=== PATIENT | male | born 1995 | race Caucasian/White ===

== ENCOUNTER 2018-05-12 16:44 | Emergency (ER) | payer BC ==
[2018-05-12 17:52] VITALS: BP 152/73
--- NOTE | 2018-05-12 18:00 | UC ---
UC General HPI - HPI Summary HPI Summary: mild head congestion 3 days ago then much worse the next day with headache, body aches, f/c's, cough and congestion plus just not feeling well. no hx asthma. describes throat as scratchy. txing with nsaids. - History of Current Complaint Chief Complaint: UCGeneralIllness Stated Complaint: CONGESTION,HUGGINS,ST,ACHY,SNEEZY Time Seen by Provider: 05/12/18 17:53 Hx Obtained From: Patient Timing: Constant Pain Intensity: 0 Associated Signs & Symptoms: Negative: Chest Pain, SOB - Allergy/Home Medications Allergies/Adverse Reactions: Allergies Allergy/AdvReac Type Severity Reaction Status Date / Time Penicillins Allergy Hives Verified 05/12/18 17:49 Home Medications: Home Medications Dm/Pseudoephed/Acetaminophen [Day-Time Cold-Flu Softgel] 1 each PO DAILY [History Confirmed 05/12/18] Ibuprofen 600 mg PO Q12H 05/12/18 [History Confirmed 05/12/18] PMH/Surg Hx/FS Hx/Imm Hx Previously Healthy: Yes - Surgical History Surgical History: None - Family History Known Family History: Positive: Non-Contributory - Social History Occupation: Student Alcohol Use: Weekly Substance Use Type: None Smoking Status (MU): Never Smoked Tobacco - Immunization History Vaccination Up to Date: Yes Review of Systems All Other Systems Reviewed And Are Negative: Yes Constitutional: Positive: Fever, Chills, Fatigue Skin: Positive: Negative Eyes: Positive: Negative ENT: Positive: Sore Throat - "scratchy", Sinus Congestion Respiratory: Positive: Cough Cardiovascular: Positive: Negative Gastrointestinal: Positive: Negative Genitourinary: Positive: Negative Motor: Positive: Negative Neurovascular: Positive: Negative Musculoskeletal: Positive: Myalgia Neurological: Positive: Headache Psychological: Positive: Negative Physical Exam Triage Information Reviewed: Yes Appearance: Well-Appearing Vital Signs: Initial Vital Signs Temp 98.5 F 05/12/18 17:47 Pulse 80 05/12/18 17:47 Resp 16 05/12/18 17:47 BP 152/73 05/12/18 17:47 Pulse Ox 99 05/12/18 17:47 Vital Signs Reviewed: Yes Eyes: Positive: Conjunctiva Clear ENT: Positive: Pharynx normal, TMs normal. Negative: Nasal drainage, Sinus tenderness Neck: Positive: Supple, Nontender, No Lymphadenopathy Respiratory: Positive: Lungs clear, Normal breath sounds, No respiratory distress Cardiovascular: Positive: RRR, No Murmur Abdomen Description: Positive: Nontender, No Organomegaly, Soft Bowel Sounds: Positive: Present Musculoskeletal: Positive: ROM Intact Neurological: Positive: Alert Psychological: Positive: Age Appropriate Behavior Skin Exam: Normal Diagnostics - Laboratory Diagnostic Studies Completed/Ordered: rapid flu=influenza A+ Course/Dx - Course Course Of Treatment: beynd window for Tamiflu tx plus low risk thus no Tamiflu prescribed. - Differential Dx - Multi-Symptom Differential Diagnoses: Other - viral syndrom/influenza, pneumonia, pharyngitis. - Diagnoses Provider Diagnosis: Influenza A Discharge - Sign-Out/Discharge Documenting (check all that apply): Patient Departure All imaging exams completed and their final reports reviewed: No Studies - Discharge Plan Condition: Stable Disposition: HOME Patient Education Materials: Influenza (ED) Forms: *Gen. Provider Communication Referrals: ADINA STEPHENS [, APPLICATION, OTHER] - Additional Instructions: FOLLOW UP IF NOT BETTER IN 5 DAYS OR SOONER FOR ANY WORSENING. - Billing Disposition and Condition Condition: STABLE Disposition: Home
[2018-05-12 18:06] LABS: Influenza A Molecular POSITIVE (Negative)
== END 2018-05-12 18:29 | disposition home or self-care (01) ==
LOC: UCCORT 16:44
DX: J10.1 Influenza due to other identified influenza virus with other respiratory manifestations (principal); Z88.0 Allergy status to penicillin
CPT/HCPCS: 99201; G0463

== ENCOUNTER 2019-05-27 11:25 | Emergency (ER) | payer BC ==
[2019-05-27 12:08] VITALS: BP 140/90
--- NOTE | 2019-05-27 12:28 | UC ---
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 He denies any fever or chills. - History of Current Complaint Chief Complaint: UCEar Stated Complaint: L EAR PAIN Time Seen by Provider: 05/27/19 12:23 Hx Obtained From: Patient Onset/Duration: Gradual Onset Severity Initially: Mild Severity Currently: Moderate Pain Intensity: 6 Aggravating Factors: Nothing Alleviating Factors: Nothing Associated Signs/Symptoms: Positive: URI Symptoms - Allergies/Home Medications Allergies/Adverse Reactions: Allergies Allergy/AdvReac Type Severity Reaction Status Date / Time Penicillins Allergy Hives Verified 05/27/19 12:05 Home Medications: Home Medications Azithromyxin ROCIO (NF) [Z-Rocio (Zithromax) 250 mg tabs #6] 2 tab PO .TODAY, THEN 1 DAILY #6 tab 05/27/19 [Rx] Ibuprofen TAB* [Advil TAB*] 600 mg PO Q6H PRN 05/27/19 [History Confirmed ] PMH/Surg Hx/FS Hx/Imm Hx Previously Healthy: Yes - Surgical History Surgical History: None - Family History Known Family History: Positive: None, Non-Contributory - Social History Occupation: Student Lives: Dormitory/Roommates Alcohol Use: Weekly Substance Use Type: None Smoking Status (MU): Never Smoked Tobacco - Immunization History Vaccination Up to Date: Yes Review of Systems All Other Systems Reviewed And Are Negative: Yes ENT: Positive: Ear Ache - Left-sided earache., Nasal Discharge Is Patient Immunocompromised?: No Physical Exam Triage Information Reviewed: Yes Appearance: Well-Appearing, No Pain Distress, Well-Nourished Vital Signs: Initial Vital Signs Temp 98.6 F 05/27/19 12:03 Pulse 66 05/27/19 12:03 Resp 16 05/27/19 12:03 BP 140/90 05/27/19 12:03 Pulse Ox 99 05/27/19 12:03 Vital Signs Reviewed: Yes Eyes: Positive: Conjunctiva Clear ENT: Positive: Pharynx normal, TM red - Right tympanic membrane is pearly-lee with good landmarks and light reflex, left tympanic membrane is erythematous and bulging., Uvula midline Neck: Positive: Supple, Nontender, No Lymphadenopathy Respiratory: Positive: Lungs clear, Normal breath sounds, No respiratory distress, No accessory muscle use Cardiovascular: Positive: RRR, No Murmur, Pulses Normal, Brisk Capillary Refill Musculoskeletal Exam: Normal Neurological Exam: Normal Psychological Exam: Normal Skin Exam: Normal Ear Complaint Course/Dx - Course Course Of Treatment: The patient is comfortable here and in no distress. - Differential Dx/Diagnosis Provider Diagnosis: Left otitis media Discharge ED - Sign-Out/Discharge Documenting (check all that apply): Patient Departure All imaging exams completed and their final reports reviewed: No Studies - Discharge Plan Condition: Good Disposition: HOME Prescriptions: Azithromyxin ROCIO (NF) [Z-Rocio (Zithromax) 250 mg tabs #6] 2 tab PO .TODAY, THEN 1 DAILY #6 tab Patient Education Materials: Ear Infection (ED) Referrals: No Primary Care Phys,NOPCP [Primary Care Provider] - ADINA STEPHENS [[employer], APPLICATION, OTHER] - Additional Instructions: Increase fluids, may alternate Tylenol every 4 hours with ibuprofen every 8 hours for pain. Follow up at the [facility] if no improvement in 3 or 4 days. - Billing Disposition and Condition Condition: GOOD Disposition: Home
== END 2019-05-27 12:34 | disposition home or self-care (01) ==
LOC: UCCORT 11:25
DX: H66.92 Otitis media, unspecified, left ear (principal); R09.89 Other specified symptoms and signs involving the circulatory and respiratory systems; Z88.0 Allergy status to penicillin
CPT/HCPCS: 99212; G0463